=== PATIENT | female | born 1975 ===

== ENCOUNTER 2016-11-01 15:25 | Emergency (ER) | payer MEDICAID, OTHER ==
[2016-11-01 15:25] VITALS: BMI 27.4
[2016-11-01] MEDS ORDERED: Alum-Mag Hydrox-Simethicone Susp (30 mL) PO STA (16:28)
[2016-11-01] MEDS ORDERED: Alum-Mag Hydrox-Simethicone Susp (30 mL) ONE (16:31)
--- NOTE | 2016-11-01 19:51 | ED PDOC ---
HPI: Psych/Substance Abuse Time Seen by Provider: 11/01/16 16:30 Chief Complaint (Nursing): Psychiatric Evaluation Chief Complaint (Provider): itnoxication ED Caveat: Intoxicated Additional Complaint(s): 41yo F in bought to ED by EMS for intoxication-admitted to EMS she is SI no mention of plan. Pt admits to heavy drinking admits to nausea. Past Medical History Reviewed: Historical Data, Nursing Documentation, Vital Signs Vital Signs: Last Vital Signs Temp 98.0 F 11/01/16 15:27 Pulse 106 H 11/01/16 15:27 Resp 26 H 11/01/16 15:27 BP 160/105 H 11/01/16 15:27 Pulse Ox 98 11/01/16 15:27 - Medical History PMH: Anxiety, Arthritis, Depression, Gall Bladder Disease Denies: Chronic Kidney Disease - Surgical History Surgical History: Cholecystectomy (11/2014) - Family History Family History: States: Unknown Family Hx - Immunization History Hx Tetanus Toxoid Vaccination: No (unknown) Hx Influenza Vaccination: No (unknown) Hx Pneumococcal Vaccination: No (unknown) - Home Medications Home Medications: Ambulatory Orders Medication Instructions Recorded Methylprednisolone [Medrol Dose 4 mg PO DAILY #21 mg 06/11/15 Pack (21 tabs)] - Allergies Allergies/Adverse Reactions: Allergies Allergy/AdvReac Type Severity Reaction Status Date / Time No Known Allergies Allergy Verified 06/10/15 18:30 Review of Systems ROS Statement: Except As Marked, All Systems Reviewed And Found Negative Gastrointestinal: Positive for: Nausea Psych: Positive for: Depression Physical Exam - Reviewed Nursing Documentation Reviewed: Yes Vital Signs Reviewed: Yes - Physical Exam Appears: Positive for: Non-toxic (intoxicated, alcohol noted on breath), No Acute Distress. Negative for: Well Head Exam: Positive for: ATRAUMATIC, NORMAL INSPECTION, NORMOCEPHALIC Skin: Positive for: Normal Color, Warm, DRY Eye Exam: Positive for: EOMI, Normal appearance, PERRL Cardiovascular/Chest: Positive for: Regular Rate, Rhythm Respiratory: Positive for: CNT, Normal Breath Sounds Neurologic/Psych: Positive for: Alert, Oriented - ECG O2 Sat by Pulse Oximetry: 98 - Progress ED Course And Treament: pt alcohol level elevated. once alcohol level dec. will have crisis evaluation. family-came to ED to see pt- and child. pt given zofran and maalox for abd discomfort. ED OBSERVATION Date of observation admission: 11/01/16 Time of observation admission: 19:51 - Observation admission statement Patient is being placed in observation because:: intoxication/depression - Goals of Observation Goals of observation are:: crisis eval Disposition - Clinical Impression Clinical Impression: Alcohol intoxication - Patient ED Disposition Is Patient to be Admitted: Transfer of Care - Disposition Disposition Time: 19:51 Condition: STABLE Patient Signed Over To: Kaylin Ward Handoff Comments: crisis eval
[2016-11-02 04:22] VITALS: BP 135/80; PULSE 75; RESP 16; TEMP 97.9; O2SAT 100
--- NOTE | 2016-11-02 04:25 | ED PDOC ---
- ECG O2 Sat by Pulse Oximetry: 100 - Progress ED Course And Treament: Case endorsed to va underwriter from Delia IYER pending clinical sobriety, crisis eval Patient evaluated by fast foods worker; does not meet criteria for admission as per Dr. Romero. 4:25 Patient awake, alert, oriented x 3. Ambulating steady gait. Stable for discharge. Disposition - Clinical Impression Clinical Impression: Alcohol use disorder - POA Present On Arrival: None - Disposition Disposition: Routine/Home Disposition Time: 04:24 Condition: STABLE Instructions: Alcohol Intoxication (ED) Forms: [facility] ED School/Work Excuse
== END 2016-11-02 04:55 | disposition home or self-care (01) ==
LOC: H.ER 15:25
DX: F10.129 Alcohol abuse with intoxication, unspecified (principal)

== ENCOUNTER 2017-01-03 22:10 | Inpatient (IN) | payer MEDICAID ==
[2017-01-03 22:11] VITALS: BMI 27.4
--- NOTE | 2017-01-03 22:40 | ED PDOC ---
HPI: Psych/Substance Abuse Time Seen by Provider: 01/03/17 22:19 Chief Complaint (Nursing): Psychiatric Evaluation Chief Complaint (Provider): crisis History Per: EMS Additional History Per: EMS Additional Complaint(s): 41 y/o female brought in by EMS for crisis eval. As per EMS, patient's daughter called for bizarre behavior. Patient awake upon arrival to ED; +AOB. HPI limited at this time due to current state. No obvious signs of trauma Past Medical History Reviewed: Historical Data, Nursing Documentation, Vital Signs Vital Signs: Last Vital Signs Temp 98.2 F 01/03/17 22:12 Pulse 96 H 01/03/17 22:12 Resp 17 01/03/17 22:12 BP 153/96 H 01/03/17 22:12 Pulse Ox 98 01/03/17 22:12 - Medical History PMH: Anxiety, Arthritis, Depression, Gall Bladder Disease Denies: Diabetes, Hepatitis, HIV, HTN, Chronic Kidney Disease, Seizures, Sexually Transmitted Disease - Surgical History Surgical History: Cholecystectomy (11/2014) - Family History Family History: States: Unknown Family Hx - Immunization History Hx Tetanus Toxoid Vaccination: No (unknown) Hx Influenza Vaccination: No (unknown) Hx Pneumococcal Vaccination: No (unknown) - Home Medications Home Medications: Ambulatory Orders Medication Instructions Recorded Budesonide [Entocort EC] 3 mg PO TID 01/04/17 Multivitamin [Multi-Vitamin Daily] 1 tab PO DAILY 01/04/17 - Allergies Allergies/Adverse Reactions: Allergies Allergy/AdvReac Type Severity Reaction Status Date / Time No Known Allergies Allergy Verified 06/10/15 18:30 Review of Systems ROS Statement: Except As Marked, All Systems Reviewed And Found Negative Physical Exam - Reviewed Nursing Documentation Reviewed: Yes Vital Signs Reviewed: Yes - Physical Exam Appears: Positive for: Well, Non-toxic, No Acute Distress Head Exam: Positive for: ATRAUMATIC, NORMAL INSPECTION, NORMOCEPHALIC Skin: Positive for: Normal Color Eye Exam: Positive for: Normal appearance, EOMI, PERRL Cardiovascular/Chest: Positive for: Regular Rate, Rhythm Respiratory: Positive for: Normal Breath Sounds Gastrointestinal/Abdominal: Positive for: Normal Exam Back: Positive for: Normal Inspection Extremity: Positive for: Normal ROM Neurologic/Psych: Positive for: Alert - Laboratory Results Result Diagrams: 01/04/17 16:45 01/04/17 16:45 - ECG O2 Sat by Pulse Oximetry: 98 - Progress ED Course And Treament: labs, urine ED OBSERVATION Date of observation admission: 01/04/17 Time of observation admission: 00:14 - Observation admission statement Patient is being placed in observation because:: alcohol intoxication - Goals of Observation Goals of observation are:: observe for clinical sobriety - Progress Note Progress Note: 01/04/17 00:14 Patient sleeping; arousable to verbal stimuli 01/04/17 01:24 Patient awake. Patient evaluated by Dr. Camacho, who is now exhibiting auditory hallucinations and responding to internal stimuli. Crisis eval ordered 3:15 Patient evaluated by demolition worker, possible [facility] screening. Patient still unable to provide name. CT head and ammonia level ordered 01/04/17 3:30 whiting can worker contacted patient's , who states patient with extensive history of alcohol abuse and is currently on "liver medications". noted that patient hallucinates when she drinks and has problems remembering which always resolves after sobering up. Patient's states he will be come to ED at 6:30 after he gets off of work. IV banana bag ordered 01/04/17 03:45 EXAM: CT Head Without Intravenous Contrast CLINICAL HISTORY: 41 years old, female; Signs and symptoms; Altered mental status/memory loss; Additional info: AMS TECHNIQUE: Axial computed tomography images of the head/brain without intravenous contrast. This CT exam was performed using one or more of the following dose reduction techniques: automated exposure control, adjustment of the mA and/or kV according to patient size, and/or use of iterative reconstruction technique. Coronal and sagittal reformatted images were created and reviewed. COMPARISON: No relevant prior studies available. FINDINGS: Brain: No intracranial hemorrhage. No mass. No definite edema. Ventricles: No hydrocephalus. Bones/joints: No acute fracture. Soft tissues: Unremarkable. Sinuses: No acute sinusitis. Mastoid air cells: No mastoid effusion. Orbits: Unremarkable as visualized. IMPRESSION: 1. No acute intracranial abnormality. 2. Incidental/non-acute findings are described above. 01/04/17 21:31 01/04/17 21:33 Disposition - Clinical Impression Clinical Impression: Alcohol abuse with intoxication, Psychosis - Patient ED Disposition Is Patient to be Admitted: No - Disposition Disposition: Transfer of Care Disposition Time: 05:55 Condition: STABLE Patient Signed Over To: Karlos Camacho Handoff Comments: pending clinical sobriety
[2017-01-03 23:13] LABS: BASO % 0.9 % (0.0-2.0); EOS # 0.1 K/uL (0.0-0.7); EOS % 2.3 % (0.0-4.0); LYMPH # 1.5 K/uL (1.0-4.3); LYMPH % 36.5 % (20.0-40.0); MEAN CELL VOLUME 84.6 fl (81.0-99.0); MEAN CORPUSCULAR HEMOGLOBIN 28.1 pg (27.0-31.0); MEAN CORPUSCULAR HGB CONC 33.3 g/dL (33.0-37.0); MEAN PLATELET VOLUME 7.9 fl (7.2-11.7); MONO # 0.4 K/uL (0.0-0.8); MONO % 10.1 % (0.0-10.0); NEUT % 50.2 % (50.0-75.0); NRBC % 0.4 % (0.0-0.0); RED CELL DISTRIBUTION WIDTH 16.8 % (11.5-14.5)
[2017-01-03 23:25] LABS: ALB/GLOB RATIO 0.7 (1.0-2.1); ALCOHOL SERUM 252 mg/dl (0-10); ALKALINE PHOSPHATASE 346 U/L (38-126); ALT/SGPT 314 U/L (9-52); BILIRUBIN,TOTAL 0.8 mg/dl (0.2-1.3); BLOOD UREA NITROGEN 8 mg/dl (7-17); CALCIUM 8.3 mg/dL (8.4-10.2); CARBON DIOXIDE 25 mmol/L (22-30); CHLORIDE 105 mmol/L (98-107); GFR AFRICAN-AMERICAN > 60; GLUCOSE,RANDOM 107 mg/dL (65-105); POTASSIUM 3.9 MMOL/L (3.6-5.0); SODIUM 142 mmol/l (132-148); TOTAL PROTEIN 9.6 G/DL (6.3-8.2)
[2017-01-04 00:04] LABS: AST/SGOT 877 U/L (14-36)
[2017-01-04] MEDS ORDERED: Multivitamin (MVI) 10 ML, Folic Acid 1 MG, Thiamine 100 MG in Dextrose 5%/0.45% NS 1,00... IV ONE (03:36)
--- NOTE | 2017-01-04 03:44 | CT ---
EXAM: CT Head Without Intravenous Contrast CLINICAL HISTORY: 41 years old, female; Signs and symptoms; Altered mental status/memory loss; Additional info: AMS TECHNIQUE: Axial computed tomography images of the head/brain without intravenous contrast. This CT exam was performed using one or more of the following dose reduction techniques: automated exposure control, adjustment of the mA and/or kV according to patient size, and/or use of iterative reconstruction technique. Coronal and sagittal reformatted images were created and reviewed. COMPARISON: No relevant prior studies available. FINDINGS: Brain: No intracranial hemorrhage. No mass. No definite edema. Ventricles: No hydrocephalus. Bones/joints: No acute fracture. Soft tissues: Unremarkable. Sinuses: No acute sinusitis. Mastoid air cells: No mastoid effusion. Orbits: Unremarkable as visualized. IMPRESSION: 1. No acute intracranial abnormality. 2. Incidental/non-acute findings are described above.
--- NOTE | 2017-01-04 06:28 | ED PDOC ---
- Laboratory Results Result Diagrams: 01/04/17 16:45 01/04/17 16:45 - ECG O2 Sat by Pulse Oximetry: 98 (RA) Pulse Ox Interpretation: Normal Medical Decision Making Medical Decision Making: Patient was signed out to provider from Kaylin Ward PA-C at 0600. Time:0655 Patient evaluated by crisis after arrived. As per , patient is refusing to recognize him and has persistently stated she was suicidal. Patient also observed to be responding to internal stimuli and admits to auditory hallucinations. Crisis is referring patient [place] [facility] at this time Time: 0700 Patient signed out to Dr. Bettencourt pending [facility] [place] Scribe Attestation Documented by Lalita Sam acting as a scribe for Karlos Camacho MD. Provider Attestation: All medical record entries made by the Scribe were at my direction and personally dictated by me. I have reviewed the chart and agree that the record accurately reflects my personal performance of the history, physical exam, medical decision making, and the department course for this patient. I have also personally directed, reviewed, and agree with the discharge instructions and disposition. Disposition Counseled Patient/Family Regarding: Studies Performed, Diagnosis - Clinical Impression Clinical Impression: Alcohol abuse with intoxication, Psychosis - POA Present On Arrival: None - Disposition Disposition: Routine/Home Disposition Time: 06:20 Condition: STABLE Patient Signed Over To: Jenny Bettencourt
--- NOTE | 2017-01-04 07:21 | ED PDOC ---
- Laboratory Results Result Diagrams: 01/03/17 22:40 01/03/17 22:40 - ECG ECG: Positive for: Interpreted By Me ECG Rhythm: Positive for: Normal QRS, Sinus Rhythm. Negative for: ST/T Changes Rate: 82 O2 Sat by Pulse Oximetry: 99 (RA) Pulse Ox Interpretation: Normal Medical Decision Making Medical Decision Making: Time: 0700 Patient signed out by Dr. Camacho pending [facility] screening Time: 1023 Crisis requesting alcohol level and CXR at this time Time: 1235 Alcohol level is zero CXR: HISTORY:psych COMPARISON: Comparison made with chest radiograph dated 01/29/2014. . FINDINGS: LUNGS: No active pulmonary disease. PLEURA: No significant pleural effusion identified, no pneumothorax apparent. CARDIOVASCULAR: Heart size is upper limits of normal OSSEOUS STRUCTURES: No significant abnormalities. VISUALIZED UPPER ABDOMEN: Normal. OTHER FINDINGS: None. IMPRESSION: No active disease. Urine: Negative for infection Patient is medically cleared for evaluation Time: 1340 Dr. Almonte, discussed that patient remains altered but with normal ammonia levels. Patient is noted to have elevated LFT, elevated from 300 AST to 800. GI and Neuro work up admission at this time Dr Brewster neurology aware Dr Jillian ELENA called but no call back Scribe Attestation: Documented by Eliz Richey acting as a scribe for Jenny Bettencourt MD MD Scribe Attestation: All medical record entries made by the Scribe were at my direction and personally dictated by me. I have reviewed the chart and agree that the record accurately reflects my personal performance of the history, physical exam, medical decision making, and the department course for this patient. I have also personally directed, reviewed, and agree with the discharge instructions and disposition. Time: 14:18 --Dr. Abdalla is aware and agrees with patient being admitted. --Neurologist is risk control analyst: Dr. Brewster who is aware and will see patient. Scribe Attestation: Documented by Nydia Armstrong, acting as a scribe for Jenny Bettencourt MD. Provider Scribe Attestation: All medical record entries made by the Scribe were at my direction and personally dictated by me. I have reviewed the chart and agree that the record accurately reflects my personal performance of the history, physical exam, medical decision making, and the department course for this patient. I have also personally directed, reviewed, and agree with the discharge instructions and disposition. Disposition Counseled Patient/Family Regarding: Studies Performed, Diagnosis - Clinical Impression Clinical Impression: Alcohol abuse with intoxication - POA Present On Arrival: None - Disposition Disposition: Admitted as In-Patient Disposition Time: 14:00 Condition: STABLE
[2017-01-04 12:18] LABS: RBC URINE 31 /hpf (0-3); URINE BACTERIA RARE (<OCC); URINE BILIRUBIN NEGATIVE (NEGATIVE); URINE BLOOD MODERATE (NEGATIVE); URINE COLOR AMBER (YELLOW); URINE GLUCOSE (UA) NEG (Normal); URINE KETONE TRACE mg/dL (NEGATIVE); URINE LEUKOCYTE ESTERASE NEG Leu/uL (Negative); URINE PROTEIN 100 mg/dL (NEGATIVE); WBC URINE 3 /hpf (0-5)
--- NOTE | 2017-01-04 12:38 | RAD ---
HISTORY: psych COMPARISON: Comparison made with chest radiograph dated 01/29/2014. . FINDINGS: LUNGS: No active pulmonary disease. PLEURA: No significant pleural effusion identified, no pneumothorax apparent. CARDIOVASCULAR: Heart size is upper limits of normal OSSEOUS STRUCTURES: No significant abnormalities. VISUALIZED UPPER ABDOMEN: Normal. OTHER FINDINGS: None. IMPRESSION: No active disease.
--- NOTE | 2017-01-04 13:30 | CP.PCM.CON ---
History of Present Illness - History of Present Illness History of Present Illness: Psychiatry consult Patient is poor historian due to altered mental status, she stares blankly at fiction and nonfiction writer prose and only answers some questions. She is not oriented to location, date, or situation. She is actively hallucinating, seeing colors and ants and having auditory hallucinations of "noises". As per records she is a chronic alcohol abuser. Additional information from the chart: 41 y/o female who was brought into ED by EMS secondary to daughter calling 911 after pt was acting paranoid. Pt stated she does not know why she is in this ED. Pt stated all she can remember was seeing the ambulance come to her home and pt stated she felt anxious. Pt stated she did not know where she lives and stated she did not know who she lived with. Pt denied having a psych hx and denied being on meds. Pt stated she has never been admitted to the psychiatric unit. Pt stated she drank alcohol yesterday and stated she drinks 1x a week. Pt stated she is feeling depressed. Pt stated she is feeling suicidal with a plan to choke herself. Pt denied HI. Pt stated she heard voices before but does not remember what they told her or what they sounded like. Pt stated she wanted to be admitted to the psych unit. Pt was guarded and still was answering questions with, I dont remember. Pts tone was low and slow. Pt is not oriented to time, year, month, or place, but only knows her first name. Pts of 14 years, Flaco GrantAczdl-[phone], who stated pt has a drinking problem and that pt is always drinking. He stated pt does not have psych issues but could be depressed due to having to watch their 5 kids and they drive her crazy. He stated pt is only on a medication for her liver. He stated pt is in a program for drinking but does not remember the name. He stated pt is not a danger to herself or others but thinks she needs to stay until the morning when he comes and he will help her get stabilized. He stated pt forgets everything when she drinks and stated pt hallucinates when drinking. He stated pt lost her job recently and her boss called her a thief last week. He stated since then, pt has been drinking hard. He stated pt has never stated she wanted to hurt herself but only would tell him she hears things and see things. He stated he was with pt all morning and afternoon and pt was fine. He asked if pt could be observed until 6:30am and stated she needs to be more sober due to her drinking for 3 days straight. He stated he will be here at 6:30am and stated he feels pt will remember him and will be able to answer more questions. He stated pt is not nuts and does need admission to psych unit. He stated he wants to help pt get into a program for her drinking. MSE: A + O x 1, staring at the fiction and nonfiction writer prose, poverty of thought/speech, +AH/VH, NO SI/ HI. Insight/judgment currently impaired. Impression: 41 yo female w/ h/o chronic alcohol abuse, no significant psychiatric history of treatment or medications, currently with elevated LFTs, came in to the hospital acutely intoxicated, now sober, but with altered mental status, actively hallucinating. At this time, patient's acute presentation seems more likely due to a primary medical condition, but patient may have a psychotic disorder. Recommendations: -Continued medical evaluation to r/o medical cause of change in mental status -Can give Zyprexa 5 mg PO once for acute psychosis -Would start Ativan or Librium for alcohol withdrawal Past Patient History - Infectious Disease Hx of Infectious Diseases: None - Tetanus Immunizations Tetanus Immunization: Unknown - Past Medical History & Family History Past Medical History?: Yes - Past Social History Smoking Status: Unknown If Ever Smoked - CARDIAC Hx Cardiac Disorders: No Hx Hypertension: No - PULMONARY Hx Tuberculosis: No - NEUROLOGICAL HX Cerebrovascular Accident: No Hx Seizures: No - HEENT Hx HEENT Problems: No - RENAL Hx Chronic Kidney Disease: No - ENDOCRINE/METABOLIC Hx Endocrine Disorders: No - HEMATOLOGICAL/ONCOLOGICAL Hx Cancer: No Hx Human Immunodeficiency Virus (HIV): No - INTEGUMENTARY Hx Dermatological Problems: No - MUSCULOSKELETAL/RHEUMATOLOGICAL Hx Arthritis: Yes - GASTROINTESTINAL Hx Gall Bladder Disease: Yes - GENITOURINARY/GYNECOLOGICAL Hx Sexually Transmitted Disorders: No - PSYCHIATRIC Hx Anxiety: Yes Hx Depression: Yes - SURGICAL HISTORY Hx Cholecystectomy: Yes (11/2014) - ANESTHESIA Hx Anesthesia: Yes Hx Anesthesia Reactions: No Hx Malignant Hyperthermia: No Meds Allergies/Adverse Reactions: Allergies Allergy/AdvReac Type Severity Reaction Status Date / Time No Known Allergies Allergy Verified 06/10/15 18:30 Results - Vital Signs Recent Vital Signs: Last Vital Signs Temp 98.6 F 01/04/17 11:41 Pulse 90 01/04/17 11:41 Resp 20 01/04/17 11:41 BP 150/94 H 01/04/17 11:41 Pulse Ox 99 01/04/17 12:54 - Labs Result Diagrams: 01/03/17 22:40 01/03/17 22:40 Labs: Laboratory Results - last 24 hr 01/04/17 01/04/17 01/04/17 03:31 10:45 11:56 Ammonia 21 Urine Color Aria Urine Clarity Slighty-cloudy Urine pH 6.0 Ur Specific [place] 1.024 Urine Protein 100 Urine Glucose (UA) Neg Urine Ketones Trace Urine Blood Moderate Urine Nitrate Negative Urine Bilirubin Negative Urine Urobilinogen 2.0 H Ur Leukocyte Esterase Neg Urine RBC (Auto) 31 H Urine Microscopic WBC 3 Ur Squamous Epith Cells 10 H Urine Bacteria Rare Hyaline Casts 0-2 Alcohol, Quantitative < 10
[2017-01-04] MEDS ORDERED: Thiamine 100 mg/ml Inj IV ONE (16:34)
[2017-01-04] MEDS ORDERED: Sucralfate 1 gm/10 ml Oral Susp UD PO ONE (16:38)
[2017-01-04] MEDS: Sodium Chloride 0.9% 1,000 ML IV SCH (17:00)
--- NOTE | 2017-01-04 17:03 | PCM.RRTMUL ---
<Opal Espana - Last Filed: 01/04/17 17:01> UTILITY REPAIRER Nurse Assessment - Situation UTILITY REPAIRER Responder Arrival Time:: 16:30 UTILITY REPAIRER Called By: RN - Vital Signs Blood Pressure:: 156/91 Pulse Rate:: 75 Respiratory Rate:: 18 Temperature:: 98.3 F I.Reason for UTILITY REPAIRER - A) Acute Change in Patient: Subjective: 41 yo female w/ h/o chronic alcohol abuse, came in to the hospital acutely intoxicated, and with altered mental status, actively hallucinating admitted for Psychiatric evaluation, now presenting with middle chest-epigastric pain. UTILITY REPAIRER was called by nurse because patient was complaining of middle-epigastric chest pain, no radiating, and no associated with nausea, vomiting, SOB, lightheadedness, or other complains. - Constitutional Appears: Non-toxic, No Acute Distress - Respiratory Exam Respiratory Exam: Clear to Ausculation Bilateral, NORMAL BREATHING PATTERN - Cardiovascular Exam Cardiovascular Exam: REGULAR RHYTHM, +S1, +S2 - GI/Abdominal Exam GI & Abdominal Exam: Soft, Normal Bowel Sounds. absent: Guarding, Rigid, Tenderness, Rebound - Neurological Exam Neurological Exam: Alert, Awake, Oriented x3 - Extremities Exam Extremities Exam: Normal Inspection. absent: Calf Tenderness, Pedal Edema Plan - A. End of UTILITY REPAIRER Vital Signs: Blood Pressure: 150/90 Pulse Rate: 75 Respiratory Rate: 14 O2 Sat by Pulse Oximetry: 100 - B. Assessment of Findings&Treatment Plan VS: BP: 150/90, HR: 75/min, RR: 14/min, O2 Sat 100 % in NC A: 41 yo female w/ h/o chronic alcohol abuse, presenting with chest-epigastric pain , etiology most likely secondary to alcohol consumption history, but we can not r/o ACS. Plan:EKG: showed NSR, but peaked T waves compared with previous EKG CBC, CMP, Troponin I once, Magnesium, Phosphorus, Type & Screen IV hydration with NS 100 ml/hr Thiamine 100 mg IV once. Then Thiamine 100 mg PO daily start tomorrow. Pantoprazole 40 mg IV once. Then Pantoprazole 40 mg PO daily tomorrow. Folic acid 1 mg PO daily Ativan 1 mg IVP once. Then Ativan 1 mg PRN Q4h Sucralfate 1 gm PO once F/U lab results At the end of UTILITY REPAIRER patient was alert, awake, and oriented. Chest-epigastric pain still present but improved. <DongNikki - Last Filed: 01/04/17 17:39> Attending/Attestation - Attestation I have personally seen and examined this patient.: Yes I have fully participated in the care of the patient.: Yes I have reviewed all pertinent clinical information, including history, physical exam and plan: Yes Notes (Text): 01/04/17 17:33 UTILITY REPAIRER called bec of epigastric pain and withdrawal sxs. Pt is a 41 y lady, known hx of Alcohol abuse. RN noted that pt was jittery and anxious, complained of epigastric pain Pt admits to daily ETOH intake , Alcohol level 250 on admission today less than 10 Epigastric Pain Alcohol Withdrawal Syndrome - EKG : no change from previosu - Ativan stat IV given then prn - start Thiamine, FA - Stat Protonix IV and Carafate PO - IVF hydration - rpt labs - CBC, CMP, Trop Dr Abdalla - pt's PMD notified of event , case discussed
[2017-01-04 17:07] LABS: HEMATOCRIT 30.6 % (34.0-47.0); MEAN CELL VOLUME 85.4 fl (81.0-99.0); MEAN CORPUSCULAR HEMOGLOBIN 27.9 pg (27.0-31.0); MEAN CORPUSCULAR HGB CONC 32.6 g/dL (33.0-37.0); RED CELL DISTRIBUTION WIDTH 16.7 % (11.5-14.5); WHITE BLOOD COUNT 3.9 K/uL (4.8-10.8)
[2017-01-04 17:11] LABS: PARTIAL THROMBOPLASTIN TIME 25.6 SECONDS (23.3-32.5)
[2017-01-04 17:22] LABS: ALB/GLOB RATIO 0.7 (1.0-2.1); ALKALINE PHOSPHATASE 382 U/L (38-126); ALT/SGPT 319 U/L (9-52); BILIRUBIN,TOTAL 1.9 mg/dl (0.2-1.3); BLOOD UREA NITROGEN 9 mg/dl (7-17); CARBON DIOXIDE 26 mmol/L (22-30); CHLORIDE 99 mmol/L (98-107); GFR AFRICAN-AMERICAN > 60; GLUCOSE,RANDOM 92 mg/dL (65-105); MAGNESIUM 1.3 MG/DL (1.6-2.3); PHOSPHOROUS 4.4 mg/dl (2.5-4.5); POTASSIUM 3.9 MMOL/L (3.6-5.0); SODIUM 135 mmol/l (132-148); TOTAL PROTEIN 10.3 G/DL (6.3-8.2)
[2017-01-04 17:36] LABS: AST/SGOT 800 U/L (14-36)
--- NOTE | 2017-01-04 18:23 | CP.PCM.CON ---
History of Present Illness - History of Present Illness History of Present Illness: Mrs. Piper is a 41-year-old woman with a past medical history of liver cirrhosis and alcoholism who presented to the ED after she was found in a confused state and claiming to have auditory and visual hallucinations. Currently, the patient is sober, but when she initially presented, she was intoxicated and still encephalopathic. The patient admits to having visual hallucinations when she drinks excessively and also states that she starts to hear noises. The noises are described as a "humming" sound that sometimes gets louder with position. Currently, she does not have any hallucinations and states that she is feeling much better. She responded normally to all questions and followed all commands. Review of Systems - Review of Systems All systems: reviewed and no additional remarkable complaints except Past Patient History - Infectious Disease Hx of Infectious Diseases: None - Tetanus Immunizations Tetanus Immunization: Unknown - Past Medical History & Family History Past Medical History?: Yes - Past Social History Smoking Status: Unknown If Ever Smoked - CARDIAC Hx Cardiac Disorders: No - PULMONARY Hx Tuberculosis: No - NEUROLOGICAL HX Cerebrovascular Accident: No Hx Seizures: No - HEENT Hx HEENT Problems: No - RENAL Hx Chronic Kidney Disease: No - ENDOCRINE/METABOLIC Hx Endocrine Disorders: No - HEMATOLOGICAL/ONCOLOGICAL Hx Cancer: No Hx Human Immunodeficiency Virus (HIV): No - INTEGUMENTARY Hx Dermatological Problems: No - MUSCULOSKELETAL/RHEUMATOLOGICAL Hx Arthritis: Yes - GASTROINTESTINAL Hx Gall Bladder Disease: Yes - GENITOURINARY/GYNECOLOGICAL Hx Sexually Transmitted Disorders: No - PSYCHIATRIC Hx Anxiety: Yes Hx Depression: Yes - SURGICAL HISTORY Hx Cholecystectomy: Yes (11/2014) - ANESTHESIA Hx Anesthesia: Yes Hx Anesthesia Reactions: No Hx Malignant Hyperthermia: No Meds Allergies/Adverse Reactions: Allergies Allergy/AdvReac Type Severity Reaction Status Date / Time No Known Allergies Allergy Verified 06/10/15 18:30 - Medications Medications: Current Medications Enoxaparin Sodium (Lovenox) 40 mg SC DAILY RIRI PRN Reason: Protocol Folic Acid (Folic Acid) 1 mg PO DAILY [facility] Home Med (Budesonide [Entocort Ec]) 3 mg PO TID RIRI Sodium Chloride (Sodium Chloride 0.9%) 1,000 mls @ 100 mls/hr IV .Q10H RIRI Stop: 01/05/17 16:45 Last Admin: 01/04/17 17:00 Dose: 100 mls/hr Lorazepam (Ativan) 1 mg IVP Q4 PRN PRN Reason: Symptoms of alcohol withdrawl Multivitamins/Minerals (Therapeutic-M Tab) 1 tab PO DAILY RIRI Pantoprazole Sodium (Protonix Ec Tab) 40 mg PO DAILY RIRI Thiamine HCl (Vitamin B1 Tab) 100 mg PO DAILY RIRI Physical Exam - Constitutional Appears: Well - Head Exam Head Exam: ATRAUMATIC, NORMAL INSPECTION, NORMOCEPHALIC - Eye Exam Eye Exam: EOMI, Normal appearance, PERRL - ENT Exam ENT Exam: Mucous Membranes Moist, Normal Exam - Respiratory Exam Respiratory Exam: Clear to Auscultation Bilateral, NORMAL BREATHING PATTERN - Cardiovascular Exam Cardiovascular Exam: REGULAR RHYTHM, +S1, +S2 - GI/Abdominal Exam GI & Abdominal Exam: Normal Bowel Sounds, Soft. absent: Tenderness - Rectal Exam Rectal Exam: Deferred - Neurological Exam Neurological exam: Alert, CN II-XII Intact, Normal Gait, Reflexes Normal Additional comments: Oriented to person and place, but not date. She knew the month and the year. She was bradyphrenic and still slightly confused, but was able to do a subtraction task and could recall 2/3 objects. - Expanded Neurological Exam Expanded Patient oriented to: person, place Cranial nerves: EOM's Intact: Normal, Gag Reflex: Normal Cerebellar Function: Finger to Nose: Normal Upper motor neuron: Babinski Sign: Normal Sensory exam: Lower Extremity 2 Point Discrimination: Normal, Lower Extremity Light Touch: Normal, Lower Extremity Pin Prick: Normal, Lower Extremity Temperature: Normal, Upper Extremity 2 Point Discrimination: Normal, Upper Extremity Light Touch: Normal, Upper Extremity Pin Prick: Normal, Upper Extremity Temperature: Normal Neuro motor strength exam: Left Upper Extremity: 5, Right Upper Extremity: 5, Left Lower Extremity: 5, Right Lower Extremity: 5 DTR: Achilles Tendon Left: 2+, Achilles Tendon Right: 2+, Bicep Left: 2+, Bicep Right: 2+, Brachioradialis Left: 2+, Brachioradialis Right: 2+, Patellar Left: 2 +, Patellar Right: 2+, Tricep Left: 2+, Tricep Right: 2+ - Psychiatric Exam Psychiatric exam: Normal Affect, Normal Mood - Skin Skin Exam: Dry, Intact, Normal Color, Warm Results - Vital Signs Recent Vital Signs: Last Vital Signs Temp 98.3 F 01/04/17 17:29 Pulse 75 01/04/17 17:29 Resp 14 01/04/17 17:29 BP 150/90 01/04/17 17:29 Pulse Ox 100 01/04/17 16:40 - Labs Result Diagrams: 01/04/17 16:45 01/04/17 16:45 Labs: Laboratory Results - last 24 hr 01/04/17 01/04/17 01/04/17 15:30 16:45 16:45 WBC 3.9 L RBC 3.58 L Hgb 10.0 L Hct 30.6 L MCV 85.4 MCH 27.9 MCHC 32.6 L RDW 16.7 H Plt Count 98 L PT 11.9 H INR 1.14 H APTT 25.6 Sodium 135 Potassium 3.9 Chloride 99 Carbon Dioxide 26 Anion Gap 15 BUN 9 Creatinine 0.4 L Est GFR ( Amer) > 60 Est GFR (Non-Af Amer) > 60 Random Glucose 92 Calcium 9.0 Phosphorus 4.4 Magnesium 1.3 L Total Bilirubin 1.9 H AST 800 H ALT 319 H Alkaline Phosphatase 382 H Troponin I < 0.0120 Total Protein 10.3 H Albumin 4.3 Globulin 6.1 H Albumin/Globulin Ratio 0.7 L BBK History Checked 01/04/17 16:45 WBC RBC Hgb Hct MCV MCH MCHC RDW Plt Count PT INR APTT Sodium Potassium Chloride Carbon Dioxide Anion Gap BUN Creatinine Est GFR ( Amer) Est GFR (Non-Af Amer) Random Glucose Calcium Phosphorus Magnesium Total Bilirubin AST ALT Alkaline Phosphatase Troponin I Total Protein Albumin Globulin Albumin/Globulin Ratio BBK History Checked No verified bt - Imaging and Cardiology CT scan - head Status: Image reviewed by me, Report reviewed by me (NO acute findings.) Assessment & Plan (1) Alcoholic psychosis with hallucinosis Assessment and Plan: Currently, she is relatively back to normal. However, the "humming" sound in her ears is concerning since this could represent a vascular lesion. I recommend obtaining an MRI with and without contrast for further evaluation. Furthermore, the memory deficits are concerning for temporal lobe injury. Continue current recommendations from psychiatry and will follow-up on imaging. Thank you very much for this consultation. Status: Acute Priority: Medium
[2017-01-05] MEDS: Sodium Chloride 0.9% 1,000 ML IV SCH ×2 (03:11→12:40)
[2017-01-05] MEDS ORDERED: Thiamine 100 mg/ml Inj IM SCH (09:00)
[2017-01-05] MEDS: Multivitamin With Minerals Tab PO SCH (09:10)
[2017-01-05] MEDS: Enoxaparin 40 mg Syringe SC SCH (09:10)
[2017-01-05] MEDS: Pantoprazole 40 mg EC Tab PO SCH (09:10)
[2017-01-05 09:12] LABS: HEMATOCRIT 28.4 % (34.0-47.0); MEAN CELL VOLUME 84.6 fl (81.0-99.0); MEAN CORPUSCULAR HEMOGLOBIN 28.5 pg (27.0-31.0); MEAN CORPUSCULAR HGB CONC 33.6 g/dL (33.0-37.0); WHITE BLOOD COUNT 6.6 K/uL (4.8-10.8)
[2017-01-05 09:22] LABS: ALB/GLOB RATIO 0.7 (1.0-2.1); ALKALINE PHOSPHATASE 319 U/L (38-126); ALT/SGPT 253 U/L (9-52); AST/SGOT 662 U/L (14-36); BILIRUBIN,TOTAL 2.2 mg/dl (0.2-1.3); BLOOD UREA NITROGEN 9 mg/dl (7-17); CALCIUM 8.7 mg/dL (8.4-10.2); CARBON DIOXIDE 23 mmol/L (22-30); CHLORIDE 102 mmol/L (98-107); GFR AFRICAN-AMERICAN > 60; GLUCOSE,RANDOM 107 mg/dL (65-105); POTASSIUM 3.8 MMOL/L (3.6-5.0); SODIUM 134 mmol/l (132-148); TOTAL PROTEIN 9.5 G/DL (6.3-8.2)
[2017-01-05] MEDS ORDERED: Gadodiamide 287 MG/ML VIAL (15ML) IV ONE (09:23)
--- NOTE | 2017-01-05 10:58 | US ---
HISTORY: elevated lft, abd pain COMPARISON: None. TECHNIQUE: Sonographic evaluation of the abdomen. FINDINGS: LIVER: Measures 15.0 cm. Hepatopedal blood flow. Fatty infiltration manifest ultrasonographically as increased echogenicity of the liver parenchyma. No mass. No intrahepatic bile duct dilatation. GALLBLADDER: Status post cholecystectomy. No abnormality is seen in the gallbladder fossa. COMMON BILE DUCT: Measures 6.5 mm. No stones. No dilatation. PANCREAS: Unremarkable as visualized. No mass. No ductal dilatation. RIGHT KIDNEY: Measures 5.9 x 11.9cm. Normal echogenicity. No calculus, mass, or hydronephrosis. LEFT KIDNEY: Measures 5.5 x 10.7cm. Normal echogenicity. No calculus, mass, or hydronephrosis. SPLEEN: Normal in size and contour. No mass. AORTA: No aneurysmal dilatation. IVC: Unremarkable. OTHER FINDINGS: None. IMPRESSION: Hepatic steatosis. Otherwise unremarkable study status post cholecystectomy.
--- NOTE | 2017-01-05 12:42 | MRI ---
PROCEDURE: MRI brain 01/05/2017 HISTORY: encephalopathy COMPARISON: Comparison made with CT scan brain 01/04/2017 TECHNIQUE: Multiplanar, multisequence MR images of the brain were obtained with and without intravenous contrast enhancement. FINDINGS: HEMORRHAGE: No acute parenchymal, subarachnoid or extra-axial hemorrhage. No hemosiderin deposition identified on gradient echo weighted sequence DWI: No evidence of an acute or early subacute infarction. BRAIN PARENCHYMA: Minimal slightly confluent nonenhancing prolonged T2 signal changes seen in the periventricular white matter most pronounced in the perifrontal horn (left greater than right) and perioccipital horn (right greater than left) regions. . . In addition, there is a punctate focus of increased T2 signal seen in the posterior aspect left basal ganglia/ coronal radiata junction ; a 2nd similar focus in the contralateral posterior aspect right basal ganglia/ coronal radiata junction may be present as well. These changes are nonspecific and of uncertain etiology however could represent chronic sequela of small vessel disease. Correlation recommended. There are no enhancing parenchymal nor extra-axial masses or collections. ENHANCEMENT: As above VENTRICLES: No evidence of obstructive hydrocephalus. CRANIUM: Unremarkable. ORBITS: Grossly unremarkable. PARANASAL SINUSES/MASTOIDS: Minimal mucosal thickening seen right maxillary antrum VASCULAR SYSTEM: The visualized major vascular flow voids at skull base are patent. OTHER FINDINGS: None . IMPRESSION: No evidence of acute hemorrhage or infarct. Minimal slightly confluent nonenhancing prolonged T2 signal changes seen in the periventricular white matter most pronounced in the perifrontal horn (left greater than right) and perioccipital horn (right greater than left) regions. . , there is punctate in addition, there is a punctate focus of increased T2 signal seen in the left posterior basal ganglia/ coronal radiata junction. These changes are nonspecific and of uncertain etiology however could represent chronic sequela of small vessel disease. Correlation recommended No enhancing parenchymal nor extra-axial masses or collections. No evidence of unusual meningeal enhancement.
--- NOTE | 2017-01-05 12:47 | CP.PCM.HP ---
<Bettye Copeland - Last Filed: 01/05/17 12:41> History of Present Illness - History of Present Illness History of Present Illness: 41yo F with PMHx cholelithisis, anxiety/depression, elevated LFTs, and EtOH abuse admitted for AMS and elevated LFTs. Pt does not recollect being sent to the hospital. c/o RUQ abd pain. Admits to recent EtOH intoxication, otherwise pt states EtOH socially. Last MRCP 06/08/15 with dilated CBD with no obstruction PMHx: as above SHx: vanna Allergies: NKDA Social hx: EtOH socially evaluated with attending Present on Admission - Present on Admission Any Indicators Present on Admission: No Review of Systems - Constitutional Constitutional: absent: Chills, Fever - Cardiovascular Cardiovascular: absent: Chest Pain - Respiratory Respiratory: absent: Dyspnea - Gastrointestinal Gastrointestinal: Abdominal Pain. absent: Diarrhea, Nausea, Vomiting - Genitourinary Genitourinary: absent: Dysuria, Hematuria - Musculoskeletal Musculoskeletal: absent: Back Pain - Neurological Neurological: Behavioral Changes Past Patient History - Infectious Disease Hx of Infectious Diseases: None - Tetanus Immunizations Tetanus Immunization: Unknown - Past Medical History & Family History Past Medical History?: Yes - Past Social History Smoking Status: Unknown If Ever Smoked - CARDIAC Hx Hypertension: No - PULMONARY Hx Tuberculosis: No - NEUROLOGICAL Hx Seizures: No - HEENT Hx HEENT Problems: No - RENAL Hx Chronic Kidney Disease: No - ENDOCRINE/METABOLIC Hx Endocrine Disorders: No - HEMATOLOGICAL/ONCOLOGICAL Hx Human Immunodeficiency Virus (HIV): No - INTEGUMENTARY Hx Dermatological Problems: No - MUSCULOSKELETAL/RHEUMATOLOGICAL Hx Arthritis: Yes - GASTROINTESTINAL Hx Gall Bladder Disease: Yes - GENITOURINARY/GYNECOLOGICAL Hx Sexually Transmitted Disorders: No - PSYCHIATRIC Hx Anxiety: Yes Hx Depression: Yes - SURGICAL HISTORY Hx Cholecystectomy: Yes (11/2014) - ANESTHESIA Hx Anesthesia: Yes Hx Anesthesia Reactions: No Hx Malignant Hyperthermia: No Meds Allergies/Adverse Reactions: Allergies Allergy/AdvReac Type Severity Reaction Status Date / Time No Known Allergies Allergy Verified 06/10/15 18:30 Physical Exam - Head Exam Head Exam: ATRAUMATIC, NORMAL INSPECTION - Eye Exam Eye Exam: Normal appearance - ENT Exam ENT Exam: Mucous Membranes Moist - Neck Exam Neck exam: Positive for: Normal Inspection - Respiratory Exam Respiratory Exam: Clear to Auscultation Bilateral - Cardiovascular Exam Cardiovascular Exam: REGULAR RHYTHM - GI/Abdominal Exam GI & Abdominal Exam: Soft, Tenderness. absent: Distended, Guarding, Rigid - Extremities Exam Extremities exam: Positive for: normal inspection - Back Exam Back exam: NORMAL INSPECTION - Neurological Exam Neurological exam: Alert, Oriented x3 Additional comments: motor/sensation grossly intact, no tremor - Skin Skin Exam: Dry, Warm Results - Vital Signs Recent Vital Signs: Last Vital Signs Temp 98.3 F 01/05/17 12:18 Pulse 95 H 01/05/17 12:18 Resp 18 01/05/17 12:18 BP 129/85 01/05/17 12:18 Pulse Ox 99 01/05/17 12:18 - Labs Result Diagrams: 01/05/17 08:50 01/05/17 08:50 Labs: Laboratory Results - last 24 hr 01/04/17 01/04/17 01/04/17 15:30 16:45 16:45 WBC 3.9 L RBC 3.58 L Hgb 10.0 L Hct 30.6 L MCV 85.4 MCH 27.9 MCHC 32.6 L RDW 16.7 H Plt Count 98 L PT 11.9 H INR 1.14 H APTT 25.6 Sodium 135 Potassium 3.9 Chloride 99 Carbon Dioxide 26 Anion Gap 15 BUN 9 Creatinine 0.4 L Est GFR ( Amer) > 60 Est GFR (Non-Af Amer) > 60 Random Glucose 92 Calcium 9.0 Phosphorus 4.4 Magnesium 1.3 L Total Bilirubin 1.9 H AST 800 H ALT 319 H Alkaline Phosphatase 382 H Troponin I < 0.0120 Total Protein 10.3 H Albumin 4.3 Globulin 6.1 H Albumin/Globulin Ratio 0.7 L Blood Type Blood Type Confirm Antibody Screen BBK History Checked 01/04/17 01/04/17 01/05/17 16:45 17:02 00:00 WBC RBC Hgb Hct MCV MCH MCHC RDW Plt Count PT INR APTT Sodium Potassium Chloride Carbon Dioxide Anion Gap BUN Creatinine Est GFR ( Amer) Est GFR (Non-Af Amer) Random Glucose Calcium Phosphorus Magnesium Total Bilirubin AST ALT Alkaline Phosphatase Troponin I < 0.0120 Total Protein Albumin Globulin Albumin/Globulin Ratio Blood Type O POSITIVE Blood Type Confirm O POSITIVE Antibody Screen Negative BBK History Checked No verified bt 01/05/17 01/05/17 01/05/17 08:50 08:50 08:50 WBC 6.6 D RBC 3.36 L Hgb 9.6 L Hct 28.4 L MCV 84.6 MCH 28.5 MCHC 33.6 RDW 17.0 H Plt Count 89 L PT INR APTT Sodium 134 Potassium 3.8 Chloride 102 Carbon Dioxide 23 Anion Gap 12 BUN 9 Creatinine 0.4 L Est GFR ( Amer) > 60 Est GFR (Non-Af Amer) > 60 Random Glucose 107 H Calcium 8.7 Phosphorus Magnesium Total Bilirubin 2.2 H AST 662 H ALT 253 H D Alkaline Phosphatase 319 H Troponin I < 0.0120 Total Protein 9.5 H Albumin 3.9 Globulin 5.6 H Albumin/Globulin Ratio 0.7 L Blood Type Blood Type Confirm Antibody Screen BBK History Checked Assessment & Plan - Assessment and Plan (Free Text) Assessment: 41yo F with PMHx cirrhosis, cholelithiasis, anxiety/depression, elevated LFTs, and EtOH abuse admitted for AMS and elevated LFTs. AMS -Psych on board, appreciate input -Neuro on board, appreciate input -MRI brain: no acute changes, chronic white matter changes -CT head: no acute pathology elevated LFTs in setting of cirrhosis -US abd: cirrhosis -GI on board, appreciate input -MRCP 06/08/15 with dilated CBD with no obstruction -MRCP -hep panel, autoimmune workup EtOH abuse -EtOH quant normalized -CIWA -Librium, ativan prn -vitamins DVT ppx -SCDs Decision To Admit - Pt Status Changed To: Hospital Disposition Of: Inpatient - Admit Certification Admit to Inpatient:: After my assessment, the patient will require hospitalization for at least two midnights. This is because of the severity of symptoms shown, intensity of services needed, and/or the medical risk in this patient being treated as an outpatient. - . Bed Request Type: Telemetry Admitting Physician: Bc Abdalla <Bc Abdalla Last Filed: 01/07/17 17:54> Results - Vital Signs Recent Vital Signs: Last Vital Signs Temp 97.9 F 01/07/17 12:51 Pulse 75 01/07/17 12:51 Resp 16 01/07/17 12:51 BP 106/68 01/07/17 12:51 Pulse Ox 99 01/07/17 12:51 - Labs Result Diagrams: 01/07/17 05:20 01/07/17 05:20 Labs: Laboratory Results - last 24 hr 01/05/17 01/07/17 01/07/17 14:00 05:20 05:20 WBC 5.7 RBC 3.17 L Hgb 9.1 L Hct 27.8 L MCV 87.7 MCH 28.7 MCHC 32.7 L RDW 17.7 H Plt Count 116 L Sodium 139 Potassium 3.7 Chloride 108 H Carbon Dioxide 23 Anion Gap 12 BUN 10 Creatinine 0.5 L Est GFR ( Amer) > 60 Est GFR (Non-Af Amer) > 60 Random Glucose 98 Calcium 8.5 Total Bilirubin 1.0 AST 369 H D ALT 192 H Alkaline Phosphatase 278 H Total Protein 8.6 H Albumin 3.5 Globulin 5.0 H Albumin/Globulin Ratio 0.7 L ALECIA Screen Positive H ALECIA Titer 1:160 H ALECIA Titer 2 TEST NOT PERFORMED ALECIA Pattern Homogeneous H ALECIA Pattern 2 TEST NOT PERFORMED Smooth Muscle Ab Titer 1:160 H Anti-Smooth Muscle Ab Positive H Assessment & Plan - Assessment and Plan (Free Text) Assessment: Patient seen and examined with residents in rounds. Case, condition, investigative work up and plan discussed in detail. Agree with residents progress note. Plan: As ordered. (Bc Abdalla MD)
[2017-01-05] MEDS ORDERED: Pneumococcal 23-Valent Vaccine IM ONE (13:00)
--- NOTE | 2017-01-05 13:33 | CP.PCM.CON ---
History of Present Illness - History of Present Illness History of Present Illness: RFC: Elevated lfts/Abdominal pain HPI: 41 year old female who presents with altered mental status. her mental status is improved today. She admits to drinking a liter of alcohol yesterday and that she drinks heavily on a regular basis. She also reports moderately severe, constant RUQ pain. She reports nausea and vomiting associated. The pain has been going on for the past few days. She has had similar pain before associated with gallstones. She has some soboe. No chest pain. She reports subjective fevers. No blood in the stool. PMhx: etoh abuse, gallstones PSHx cholecystectomy SHx etoh abuse FHx no family history of liver dz ROS acomprehensive review of systems was performed and was negative apart from HPI Past Patient History - Infectious Disease Hx of Infectious Diseases: None - Tetanus Immunizations Tetanus Immunization: Unknown - Past Medical History & Family History Past Medical History?: Yes - Past Social History Smoking Status: Unknown If Ever Smoked - CARDIAC Hx Hypertension: No - PULMONARY Hx Tuberculosis: No - NEUROLOGICAL Hx Seizures: No - HEENT Hx HEENT Problems: No - RENAL Hx Chronic Kidney Disease: No - ENDOCRINE/METABOLIC Hx Endocrine Disorders: No - HEMATOLOGICAL/ONCOLOGICAL Hx Human Immunodeficiency Virus (HIV): No - INTEGUMENTARY Hx Dermatological Problems: No - MUSCULOSKELETAL/RHEUMATOLOGICAL Hx Arthritis: Yes - GASTROINTESTINAL Hx Gall Bladder Disease: Yes - GENITOURINARY/GYNECOLOGICAL Hx Sexually Transmitted Disorders: No - PSYCHIATRIC Hx Anxiety: Yes Hx Depression: Yes - SURGICAL HISTORY Hx Cholecystectomy: Yes (11/2014) - ANESTHESIA Hx Anesthesia: Yes Hx Anesthesia Reactions: No Hx Malignant Hyperthermia: No Meds Allergies/Adverse Reactions: Allergies Allergy/AdvReac Type Severity Reaction Status Date / Time No Known Allergies Allergy Verified 06/10/15 18:30 - Medications Medications: Current Medications Chlordiazepoxide (Librium) 25 mg PO Q4H PRN PRN Reason: Withdrawl Enoxaparin Sodium (Lovenox) 40 mg SC DAILY [facility]S [facility]CLUDE 234 BEDS AT THE [facility] PRN Reason: Protocol Last Admin: 01/05/17 09:10 Dose: 40 mg Folic Acid (Folic Acid) 1 mg PO DAILY COUNTS INCLUDE 234 BEDS AT THE [facility] Last Admin: 01/05/17 09:09 Dose: 1 mg Home Med (Budesonide [Entocort Ec]) 3 mg PO TID COUNTS INCLUDE 234 BEDS AT THE [facility] Sodium Chloride (Sodium Chloride 0.9%) 1,000 mls @ 100 mls/hr IV .Q10H COUNTS INCLUDE 234 BEDS AT THE [facility] Stop: 01/05/17 16:45 Last Admin: 01/05/17 12:40 Dose: 100 mls/hr Lorazepam (Ativan) 1 mg IVP Q4 PRN PRN Reason: Symptoms of alcohol withdrawl Multivitamins/Minerals (Therapeutic-M Tab) 1 tab PO DAILY COUNTS INCLUDE 234 BEDS AT THE [facility] Last Admin: 01/05/17 09:10 Dose: 1 tab Pantoprazole Sodium (Protonix Ec Tab) 40 mg PO DAILY RIRI Last Admin: 01/05/17 09:10 Dose: 40 mg Thiamine HCl (Vitamin B1 Tab) 100 mg PO DAILY RIRI Last Admin: 01/05/17 09:10 Dose: 100 mg Physical Exam - Constitutional Appears: Non-toxic, No Acute Distress, Chronically Ill - Head Exam Head Exam: ATRAUMATIC, NORMOCEPHALIC - Eye Exam Eye Exam: Normal appearance. absent: Scleral icterus Pupil Exam: PERRL - ENT Exam ENT Exam: Mucous Membranes Moist, Normal Oropharynx - Neck Exam Neck exam: Negative for: Lymphadenopathy, Thyromegaly - Respiratory Exam Respiratory Exam: Clear to Auscultation Bilateral, NORMAL BREATHING PATTERN. absent: Rhonchi, Wheezes, Respiratory Distress - Cardiovascular Exam Cardiovascular Exam: REGULAR RHYTHM, +S1, +S2 - GI/Abdominal Exam GI & Abdominal Exam: Soft. absent: Distended, Guarding, Tenderness - Extremities Exam Extremities exam: Positive for: normal capillary refill. Negative for: pedal edema - Back Exam Back exam: absent: rash noted - Neurological Exam Neurological exam: Alert, Oriented x3 - Psychiatric Exam Psychiatric exam: Flat Affect, Normal Mood - Skin Skin Exam: Dry, Normal Color, Warm Results - Vital Signs Recent Vital Signs: Last Vital Signs Temp 98.3 F 01/05/17 12:18 Pulse 95 H 01/05/17 12:18 Resp 18 01/05/17 12:18 BP 129/85 01/05/17 12:18 Pulse Ox 99 01/05/17 12:18 - Labs Result Diagrams: 01/05/17 08:50 01/05/17 08:50 Labs: Laboratory Results - last 24 hr 01/04/17 01/04/17 01/04/17 15:30 16:45 16:45 WBC 3.9 L RBC 3.58 L Hgb 10.0 L Hct 30.6 L MCV 85.4 MCH 27.9 MCHC 32.6 L RDW 16.7 H Plt Count 98 L PT 11.9 H INR 1.14 H APTT 25.6 Sodium 135 Potassium 3.9 Chloride 99 Carbon Dioxide 26 Anion Gap 15 BUN 9 Creatinine 0.4 L Est GFR ( Amer) > 60 Est GFR (Non-Af Amer) > 60 Random Glucose 92 Calcium 9.0 Phosphorus 4.4 Magnesium 1.3 L Total Bilirubin 1.9 H AST 800 H ALT 319 H Alkaline Phosphatase 382 H Troponin I < 0.0120 Total Protein 10.3 H Albumin 4.3 Globulin 6.1 H Albumin/Globulin Ratio 0.7 L Blood Type Blood Type Confirm Antibody Screen BBK History Checked 01/04/17 01/04/17 01/05/17 16:45 17:02 00:00 WBC RBC Hgb Hct MCV MCH MCHC RDW Plt Count PT INR APTT Sodium Potassium Chloride Carbon Dioxide Anion Gap BUN Creatinine Est GFR ( Amer) Est GFR (Non-Af Amer) Random Glucose Calcium Phosphorus Magnesium Total Bilirubin AST ALT Alkaline Phosphatase Troponin I < 0.0120 Total Protein Albumin Globulin Albumin/Globulin Ratio Blood Type O POSITIVE Blood Type Confirm O POSITIVE Antibody Screen Negative BBK History Checked No verified bt 01/05/17 01/05/17 01/05/17 08:50 08:50 08:50 WBC 6.6 D RBC 3.36 L Hgb 9.6 L Hct 28.4 L MCV 84.6 MCH 28.5 MCHC 33.6 RDW 17.0 H Plt Count 89 L PT INR APTT Sodium 134 Potassium 3.8 Chloride 102 Carbon Dioxide 23 Anion Gap 12 BUN 9 Creatinine 0.4 L Est GFR ( Amer) > 60 Est GFR (Non-Af Amer) > 60 Random Glucose 107 H Calcium 8.7 Phosphorus Magnesium Total Bilirubin 2.2 H AST 662 H ALT 253 H D Alkaline Phosphatase 319 H Troponin I < 0.0120 Total Protein 9.5 H Albumin 3.9 Globulin 5.6 H Albumin/Globulin Ratio 0.7 L Blood Type Blood Type Confirm Antibody Screen BBK History Checked Assessment & Plan - Assessment and Plan (Free Text) Assessment: 41 year old female with h/o gallstones s/p cholecystectomy, etoh abuse admitted with AMS and elevated lfts with abdominal pain. 1. Elevated LFTs 2. Abdominal pain 3. Alcohol abuse Plan: -elevated lfts may be multifactorial, with h/o etoh abuse but also h/o positive autoimmune markers -will repeat autoimmune serologies -recommend MRCP since she has RUQ pain and h/o dilated CBD/gallstones -supportive care -banana bag, multivitamins, thiamine for etoh abuse -alcohol abstinence - Date & Time Date: 01/05/17 Time: 13:33
[2017-01-05 21:48] LABS: IMMUNOGLOBULIN A 446.4 mg/dL (70.0-400.0)
[2017-01-05 22:03] LABS: IMMUNOGLOBULIN G 3048.7 mg/dL (700.0-1600.0)
[2017-01-06 06:50] LABS: MEAN CELL VOLUME 86.5 fl (81.0-99.0); MEAN CORPUSCULAR HEMOGLOBIN 28.7 pg (27.0-31.0); MEAN CORPUSCULAR HGB CONC 33.2 g/dL (33.0-37.0); RED CELL DISTRIBUTION WIDTH 17.5 % (11.5-14.5); WHITE BLOOD COUNT 5.4 K/uL (4.8-10.8)
[2017-01-06 07:01] LABS: ALB/GLOB RATIO 0.7 (1.0-2.1); ALKALINE PHOSPHATASE 297 U/L (38-126); ALT/SGPT 220 U/L (9-52); AST/SGOT 521 U/L (14-36); BILIRUBIN,TOTAL 1.9 mg/dl (0.2-1.3); BLOOD UREA NITROGEN 8 mg/dl (7-17); CALCIUM 8.8 mg/dL (8.4-10.2); CARBON DIOXIDE 26 mmol/L (22-30); CHLORIDE 105 mmol/L (98-107); GFR AFRICAN-AMERICAN > 60; GLUCOSE,RANDOM 95 mg/dL (65-105); POTASSIUM 4.1 MMOL/L (3.6-5.0); SODIUM 140 mmol/l (132-148); TOTAL PROTEIN 9.5 G/DL (6.3-8.2)
--- NOTE | 2017-01-06 08:00 | PQF GENQUE ---
This form is a permanent part of the medical record 01/05/17 , Would you please clarify if there is an associated diagnosis or not to go along with the CBC results. WBC 4.0-> 5.4, H&H 9.7/29-> 9.6/28.4 , Platelets 115->89. CBC monitoring. Clarification of your documentation is requested to better reflect the severity of illness and intensity of treatment of your patient. PHYSICIAN'S RESPONSE Based on your medical judgment of the clinical indicators outlined above please clarify the following: [] Practitioner response [] If unable to determine, please check the box, sign and date. Present On Admission (POA) Indicator: [] Present at the time of admission [] Not present at the time of admission [] Clinically Undetermined In responding to this query, please exercise your independent professional judgment. The fact that a question is asked does not imply that any particular answer is desired or expected. Thank you for your clarification on this documentation. If you have any questions please call:extension [phone] or [phone] * Thank you, Veda Hogan RN [facility]
[2017-01-06] MEDS: Pantoprazole 40 mg EC Tab PO SCH (09:48)
[2017-01-06] MEDS: Multivitamin With Minerals Tab PO SCH (09:48)
[2017-01-06] MEDS: Enoxaparin 40 mg Syringe SC SCH (09:48)
--- NOTE | 2017-01-06 12:17 | MRI ---
PROCEDURE: MRI Abdomen without contrast HISTORY: COMPARISON: None available. TECHNIQUE: Multisequence, multiplanar MR images of the abdomen without gadolinium contrast enhancement. FINDINGS: LIVER: Unremarkable. GALLBLADDER: Mild extrahepatic biliary dilatation compatible with post cholecystectomy state. No evidence of choledocholithiasis.. SPLEEN: Unremarkable. ADRENALS: Unremarkable. KIDNEYS: Unremarkable. PANCREAS: Unremarkable. AORTA: No aneurysm. ASCITES: None. PERITONEUM: Unremarkable. LYMPH NODES: Unremarkable. OTHER FINDINGS: None. IMPRESSION: Mild extrahepatic biliary dilatation compatible with post cholecystectomy state. No evidence of choledocholithiasis..
[2017-01-06] MEDS ORDERED: Metoprolol 1 mg/ml Inj IVP ONE (13:46)
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
--- NOTE | 2017-01-06 15:04 | CP.PCM.PN ---
Subjective - Date & Time of Evaluation Date of Evaluation: 01/06/17 Time of Evaluation: 09:00 - Subjective Subjective: Attempted to see patient earlier today on rounds. But she was off floor for MRCP Objective - Vital Signs/Intake and Output Vital Signs (last 24 hours): Temp Pulse Resp BP Pulse Ox 98.0 F 96 H 18 130/92 H 100 01/06/17 08:19 01/06/17 08:19 01/06/17 08:19 01/06/17 08:19 01/06/17 08:19 - Medications Medications: Current Medications Chlordiazepoxide (Librium) 25 mg PO Q4H PRN PRN Reason: Withdrawl Last Admin: 01/05/17 16:11 Dose: 25 mg Clonidine HCl (Catapres) 0.1 mg PO BID [facility] Enoxaparin Sodium (Lovenox) 40 mg SC DAILY [facility] PRN Reason: Protocol Last Admin: 01/06/17 09:48 Dose: 40 mg Folic Acid (Folic Acid) 1 mg PO DAILY [facility] Last Admin: 01/06/17 09:48 Dose: 1 mg Home Med (Budesonide [Entocort Ec]) 3 mg PO TID [facility] Lorazepam (Ativan) 1 mg IVP Q4 PRN PRN Reason: Symptoms of alcohol withdrawl Last Admin: 01/06/17 11:55 Dose: 1 mg Multivitamins/Minerals (Therapeutic-M Tab) 1 tab PO DAILY [facility] Last Admin: 01/06/17 09:48 Dose: 1 tab Pantoprazole Sodium (Protonix Ec Tab) 40 mg PO DAILY [facility] Last Admin: 01/06/17 09:48 Dose: 40 mg Thiamine HCl (Vitamin B1 Tab) 100 mg PO DAILY [facility] Last Admin: 01/06/17 09:48 Dose: 100 mg - Labs Labs: 01/06/17 05:00 01/06/17 05:20 PT 11.9 SECONDS (9.6-11.2) H 01/04/17 15:30 INR 1.14 (0.92-1.08) H 01/04/17 15:30 APTT 25.6 SECONDS (23.3-32.5) 01/04/17 15:30
[2017-01-07 00:06] VITALS: O2SAT 99
[2017-01-07 06:28] LABS: HEMATOCRIT 27.8 % (34.0-47.0); MEAN CELL VOLUME 87.7 fl (81.0-99.0); MEAN CORPUSCULAR HEMOGLOBIN 28.7 pg (27.0-31.0); MEAN CORPUSCULAR HGB CONC 32.7 g/dL (33.0-37.0); RED CELL DISTRIBUTION WIDTH 17.7 % (11.5-14.5); WHITE BLOOD COUNT 5.7 K/uL (4.8-10.8)
[2017-01-07 06:39] LABS: ALB/GLOB RATIO 0.7 (1.0-2.1); ALKALINE PHOSPHATASE 278 U/L (38-126); ALT/SGPT 192 U/L (9-52); AST/SGOT 369 U/L (14-36); BLOOD UREA NITROGEN 10 mg/dl (7-17); CALCIUM 8.5 mg/dL (8.4-10.2); CARBON DIOXIDE 23 mmol/L (22-30); CHLORIDE 108 mmol/L (98-107); GFR AFRICAN-AMERICAN > 60; GLUCOSE,RANDOM 98 mg/dL (65-105); POTASSIUM 3.7 MMOL/L (3.6-5.0); SODIUM 139 mmol/l (132-148); TOTAL PROTEIN 8.6 G/DL (6.3-8.2)
--- NOTE | 2017-01-07 07:25 | CP.PCM.PN ---
<AddieLorena - Last Filed: 01/07/17 08:32> Subjective - Date & Time of Evaluation Date of Evaluation: 01/07/17 Time of Evaluation: 07:23 - Subjective Subjective: Gastroenterology Fellow/PGY4 Progress Note Patient is sad on 1:1 with nursing noting labile mood overnight. Denies abdominal pain. Tolerating diet. No bowel movement for two days. A 12-point review of systems negtive except for as above. Objective - Vital Signs/Intake and Output Vital Signs (last 24 hours): Temp Pulse Resp BP Pulse Ox 98.1 F 86 20 126/80 99 01/07/17 04:48 01/07/17 04:48 01/07/17 04:48 01/07/17 04:48 01/07/17 04:48 Intake and Output: 01/07/17 01/07/17 06:59 18:59 Intake Total 300 Balance 300 - Medications Medications: Current Medications Benzonatate (Tessalon Perles) 200 mg PO TID PRN PRN Reason: Cough Last Admin: 01/07/17 05:37 Dose: 200 mg Chlordiazepoxide (Librium) 25 mg PO Q4H PRN PRN Reason: Withdrawl Last Admin: 01/05/17 16:11 Dose: 25 mg Clonidine HCl (Catapres) 0.1 mg PO BID [facility] Last Admin: 01/06/17 17:36 Dose: Not Given Enoxaparin Sodium (Lovenox) 40 mg SC DAILY [facility] PRN Reason: Protocol Last Admin: 01/06/17 09:48 Dose: 40 mg Folic Acid (Folic Acid) 1 mg PO DAILY [facility] Last Admin: 01/06/17 09:48 Dose: 1 mg Home Med (Budesonide [Entocort Ec]) 3 mg PO TID [facility] Lorazepam (Ativan) 1 mg IVP Q4 PRN PRN Reason: Symptoms of alcohol withdrawl Last Admin: 01/06/17 11:55 Dose: 1 mg Metoprolol Succinate (Toprol Xl) 50 mg PO DAILY [facility] Multivitamins/Minerals (Therapeutic-M Tab) 1 tab PO DAILY [facility] Last Admin: 01/06/17 09:48 Dose: 1 tab Pantoprazole Sodium (Protonix Ec Tab) 40 mg PO DAILY [facility] Last Admin: 01/06/17 09:48 Dose: 40 mg Sertraline HCl (Zoloft) 25 mg PO HS [facility] Thiamine HCl (Vitamin B1 Tab) 100 mg PO DAILY [facility] Last Admin: 01/06/17 09:48 Dose: 100 mg - Labs Labs: 01/07/17 05:20 01/07/17 05:20 PT 11.9 SECONDS (9.6-11.2) H 01/04/17 15:30 INR 1.14 (0.92-1.08) H 01/04/17 15:30 APTT 25.6 SECONDS (23.3-32.5) 01/04/17 15:30 - Constitutional Appears: Non-toxic, No Acute Distress - Head Exam Head Exam: ATRAUMATIC, NORMOCEPHALIC - Eye Exam Eye Exam: EOMI, PERRL Pupil Exam: PERRL. absent: Miosis, Mydriatic - ENT Exam ENT Exam: Mucous Membranes Moist, Normal Oropharynx - Neck Exam Neck Exam: Full ROM, Normal Inspection - Respiratory Exam Respiratory Exam: Clear to Ausculation Bilateral. absent: Rales, Rhonchi, Wheezes - Cardiovascular Exam Cardiovascular Exam: RRR, +S1, +S2. absent: Gallop, Rubs - GI/Abdominal Exam GI & Abdominal Exam: Soft, Normal Bowel Sounds. absent: Distended, Firm, Guarding, Rigid, Tenderness, Organomegaly, Rebound - Extremities Exam Extremities Exam: Full ROM. absent: Pedal Edema - Neurological Exam Neurological Exam: Alert, Awake - Psychiatric Exam Psychiatric exam: Normal Affect, Normal Mood - Skin Skin Exam: Dry, Intact, Normal Color, Warm Assessment and Plan - Assessment and Plan (Free Text) Assessment: 41 year old female with history of Depression, gallstones s/p cholecystectomy 2014, Perri-en-Y gastric bypass, and Alcohl abuse presenting with altered mental status. GI consultation for elevated liver function tests. Active treatment of alcohol withdrawal. Prior MRCP 2014 and present admission showing mild extrahepatic dilatation in setting of cholecystectomy. Prior EUS 05/2015 showed normal pancreatic duct, normal pancreatic body/tail, and unable to perform ERCP in setting of Perri-en-Y gastric bypass. No prior colonoscopy. Plan: >multifactorial- alcohol abuse, history of positive ALECIA, ASMA >pending repeat autoimmune workup >Hepatitis panel negative >11/2016 necroinflammatory Grade A3, Fibrosis stage F1-2- minimal fibrosis >primary team managing alcohol withdrawal >supportive care: thiamine, folic acid, PPI, IVFs >alcohol cessation counselling provided >LFTs trending down >cleared for discharge from GI standpoint with outpatient followup of autoimmune workup >thank you for opportunity t o participate in the care of this patient <Kermit Walsh MD - Last Filed: 01/07/17 10:37> Objective - Vital Signs/Intake and Output Vital Signs (last 24 hours): Temp Pulse Resp BP Pulse Ox 98.2 F 74 16 118/80 99 01/07/17 08:12 01/07/17 09:20 01/07/17 08:12 01/07/17 09:20 01/07/17 08:12 Intake and Output: 01/07/17 01/07/17 06:59 18:59 Intake Total 300 Balance 300 - Medications Medications: Current Medications Benzonatate (Tessalon Perles) 200 mg PO TID PRN PRN Reason: Cough Last Admin: 01/07/17 05:37 Dose: 200 mg Chlordiazepoxide (Librium) 25 mg PO Q4H PRN PRN Reason: Withdrawl Last Admin: 01/05/17 16:11 Dose: 25 mg Clonidine HCl (Catapres) 0.1 mg PO BID [facility] Last Admin: 01/07/17 09:19 Dose: 0.1 mg Enoxaparin Sodium (Lovenox) 40 mg SC DAILY [facility] PRN Reason: Protocol Last Admin: 01/07/17 09:20 Dose: 40 mg Folic Acid (Folic Acid) 1 mg PO DAILY [facility] Last Admin: 01/07/17 09:20 Dose: 1 mg Home Med (Budesonide [Entocort Ec]) 3 mg PO TID [facility] Lorazepam (Ativan) 1 mg IVP Q4 PRN PRN Reason: Symptoms of alcohol withdrawl Last Admin: 01/06/17 11:55 Dose: 1 mg Metoprolol Succinate (Toprol Xl) 50 mg PO DAILY [facility] Last Admin: 01/07/17 09:20 Dose: 50 mg Multivitamins/Minerals (Therapeutic-M Tab) 1 tab PO DAILY [facility] Last Admin: 01/07/17 09:20 Dose: 1 tab Pantoprazole Sodium (Protonix Ec Tab) 40 mg PO DAILY [facility] Last Admin: 01/07/17 09:20 Dose: 40 mg Sertraline HCl (Zoloft) 25 mg PO HS [facility] Thiamine HCl (Vitamin B1 Tab) 100 mg PO DAILY [facility] Last Admin: 01/07/17 09:21 Dose: 100 mg - Labs Labs: 01/07/17 05:20 01/07/17 05:20 PT 11.9 SECONDS (9.6-11.2) H 01/04/17 15:30 INR 1.14 (0.92-1.08) H 01/04/17 15:30 APTT 25.6 SECONDS (23.3-32.5) 01/04/17 15:30 Attending/Attestation - Attestation I have personally seen and examined this patient.: Yes I have fully participated in the care of the patient.: Yes I have reviewed all pertinent clinical information, including history, physical exam and plan: Yes Notes (Text): 01/07/17 10:36 Patient seen with GI fellow on GI rounds this am. This is a 41 year old female with history of Depression, gallstones s/p cholecystectomy 2014, Perri-en-Y gastric bypass, and Alcohol abuse presenting with altered mental status. GI consultation for elevated liver function tests. Active treatment of alcohol withdrawal. Prior MRCP 2014 and present admission showing mild extrahepatic dilatation in setting of cholecystectomy. Prior EUS 05/2015 showed normal pancreatic duct, normal pancreatic body/tail, and unable to perform ERCP in setting of Perri-en-Y gastric bypass. Supportive care. Needs alcohol rehab. LFt downtrending. To follow as outpatient. Thank you for opportunity t o participate in the care of this patient
[2017-01-07 08:14] VITALS: RESP 16
--- NOTE | 2017-01-07 08:56 | CP.PCM.DIS ---
<Bettye Copeland - Last Filed: 01/07/17 12:53> Provider - Provider Date of Admission: 01/04/17 14:13 Attending physician: Bc Abdalla MD Time Spent in preparation of Discharge (in minutes): 20 Diagnosis - Discharge Diagnosis (1) Cirrhosis Status: Acute (2) Alcohol abuse with intoxication Status: Acute (3) Alcoholic psychosis with hallucinosis Status: Acute Priority: Medium (4) Abdominal pain Status: Acute (5) Elevated transaminase level Status: Acute Hospital Course - Lab Results Lab Results: Most Recent Lab Values WBC 5.7 K/uL (4.8-10.8) 01/07/17 05:20 RBC 3.17 Mil/uL (3.80-5.20) L 01/07/17 05:20 Hgb 9.1 g/dL (12.0-16.0) L 01/07/17 05:20 Hct 27.8 % (34.0-47.0) L 01/07/17 05:20 MCV 87.7 fl (81.0-99.0) 01/07/17 05:20 MCH 28.7 pg (27.0-31.0) 01/07/17 05:20 MCHC 32.7 g/dL (33.0-37.0) L 01/07/17 05:20 RDW 17.7 % (11.5-14.5) H 01/07/17 05:20 Plt Count 116 K/uL (130-400) L 01/07/17 05:20 MPV 7.9 fl (7.2-11.7) 01/03/17 22:40 Neut % (Auto) 50.2 % (50.0-75.0) 01/03/17 22:40 Lymph % (Auto) 36.5 % (20.0-40.0) 01/03/17 22:40 Meigs % (Auto) 10.1 % (0.0-10.0) H 01/03/17 22:40 Eos % (Auto) 2.3 % (0.0-4.0) 01/03/17 22:40 Baso % (Auto) 0.9 % (0.0-2.0) 01/03/17 22:40 Neut # 2.0 K/uL (1.8-7.0) 01/03/17 22:40 Lymph # 1.5 K/uL (1.0-4.3) 01/03/17 22:40 Meigs # 0.4 K/uL (0.0-0.8) 01/03/17 22:40 Eos # 0.1 K/uL (0.0-0.7) 01/03/17 22:40 Baso # 0.0 K/uL (0.0-0.2) 01/03/17 22:40 PT 11.9 SECONDS (9.6-11.2) H 01/04/17 15:30 INR 1.14 (0.92-1.08) H 01/04/17 15:30 APTT 25.6 SECONDS (23.3-32.5) 01/04/17 15:30 Sodium 139 mmol/l (132-148) 01/07/17 05:20 Potassium 3.7 MMOL/L (3.6-5.0) 01/07/17 05:20 Chloride 108 mmol/L (98-107) H 01/07/17 05:20 Carbon Dioxide 23 mmol/L (22-30) 01/07/17 05:20 Anion Gap 12 (10-20) 01/07/17 05:20 BUN 10 mg/dl (7-17) 01/07/17 05:20 Creatinine 0.5 mg/dL (0.7-1.2) L 01/07/17 05:20 Est GFR ( Amer) > 60 01/07/17 05:20 Est GFR (Non-Af Amer) > 60 01/07/17 05:20 Random Glucose 98 mg/dL (65-105) 01/07/17 05:20 Calcium 8.5 mg/dL (8.4-10.2) 01/07/17 05:20 Phosphorus 4.4 mg/dl (2.5-4.5) 01/04/17 16:45 Magnesium 1.3 MG/DL (1.6-2.3) L 01/04/17 16:45 Total Bilirubin 1.0 mg/dl (0.2-1.3) 01/07/17 05:20 AST 369 U/L (14-36) H D 01/07/17 05:20 ALT 192 U/L (9-52) H 01/07/17 05:20 Alkaline Phosphatase 278 U/L (38-126) H 01/07/17 05:20 Ammonia 21 umo/L (11-51) 01/04/17 03:31 Troponin I < 0.0120 ng/mL (0.00-0.120) 01/05/17 08:50 Total Protein 8.6 G/DL (6.3-8.2) H 01/07/17 05:20 Albumin 3.5 g/dL (3.5-5.0) 01/07/17 05:20 Globulin 5.0 gm/dL (2.2-3.9) H 01/07/17 05:20 Albumin/Globulin Ratio 0.7 (1.0-2.1) L 01/07/17 05:20 Urine Color Aria (YELLOW) 01/04/17 11:56 Urine Clarity Slighty-cloudy (Clear) 01/04/17 11:56 Urine pH 6.0 (5.0-8.0) 01/04/17 11:56 Ur Specific [place] 1.024 (1.003-1.030) 01/04/17 11:56 Urine Protein 100 mg/dL (NEGATIVE) 01/04/17 11:56 Urine Glucose (UA) Neg mg/dL (Normal) 01/04/17 11:56 Urine Ketones Trace mg/dL (NEGATIVE) 01/04/17 11:56 Urine Blood Moderate (NEGATIVE) 01/04/17 11:56 Urine Nitrate Negative (NEGATIVE) 01/04/17 11:56 Urine Bilirubin Negative (NEGATIVE) 01/04/17 11:56 Urine Urobilinogen 2.0 mg/dL (0.2-1.0) H 01/04/17 11:56 Ur Leukocyte Esterase Neg Jonnathan/uL (Negative) 01/04/17 11:56 Urine RBC (Auto) 31 /hpf (0-3) H 01/04/17 11:56 Urine Microscopic WBC 3 /hpf (0-5) 01/04/17 11:56 Ur Squamous Epith Cells 10 /hpf (0-5) H 01/04/17 11:56 Urine Bacteria Rare (<OCC) 01/04/17 11:56 Hyaline Casts 0-2 /hpf (0-2) 01/04/17 11:56 Urine Opiates Screen Negative (NEGATIVE) 01/03/17 03:31 Urine Methadone Screen Negative (NEGATIVE) 01/03/17 03:31 Ur Barbiturates Screen Negative (NEGATIVE) 01/03/17 03:31 Ur Phencyclidine Scrn Negative (NEGATIVE) 01/03/17 03:31 Ur Amphetamines Screen Negative (NEGATIVE) 01/03/17 03:31 U Benzodiazepines Scrn Negative (NEGATIVE) 01/03/17 03:31 U Oth Cocaine Metabols Negative (NEGATIVE) 01/03/17 03:31 U Cannabinoids Screen Negative (NEGATIVE) 01/03/17 03:31 Alcohol, Quantitative < 10 mg/dl (0-10) 01/04/17 10:45 IgG 3048.7 mg/dL (700.0-1600.0) H 01/05/17 14:00 IgA 446.4 mg/dL (70.0-400.0) H 01/05/17 14:00 IgM 185.0 mg/dL (40.0-230.0) 01/05/17 14:00 ALECIA Screen Positive (Negative) H 01/05/17 14:00 ALECIA Titer 1:160 Titer (<1:40) H 01/05/17 14:00 ALECIA Titer 2 TEST NOT PERFORMED 01/05/17 14:00 ALECIA Pattern Homogeneous H 01/05/17 14:00 ALECIA Pattern 2 TEST NOT PERFORMED 01/05/17 14:00 Anti-Mitochondrial Ab Negative (Negative) 01/05/17 14:00 Hepatitis A IgM Ab Negative (NEGATIVE) 01/05/17 10:26 Hep Bs Antigen Negative (NEGATIVE) 01/05/17 10:26 Hep B Core IgM Ab Negative (NEGATIVE) 01/05/17 10:26 Hepatitis C Antibody Negative (NEGATIVE) 01/05/17 10:26 Blood Type O POSITIVE 01/04/17 16:45 Blood Type Confirm O POSITIVE 01/04/17 17:02 Antibody Screen Negative 01/04/17 16:45 BBK History Checked No verified bt 01/04/17 16:45 - Hospital Course Hospital Course: 41yo F with PMHx cholelithisis, anxiety/depression, elevated LFTs, and EtOH abuse admitted for AMS and elevated LFTs. Pt had crisis eval in the ED and psych Dr. Romero c/s with recommendation for no inpatient psych admission and pt started on zoloft to be continued at d/c. Protocol followed for EtOH withdrawal as pt reported recent alcohol abuse. Neuro Dr. Brewster c/s and pt returned to baseline mentation with recommendation for medical management. US abd showed cirrhosis. GI Dr. Fraire c/s with recommendation for MRCP showing no obstruction and cirrhosis workup including autoAb which were pending at time of d/c and to be FU with GI. Pt LFTs downtrending at time of d/c. Pancytopenia likely d/t EtOH abuse and cirrhosis. Social work services set up at time of d/c to address home situation. Discharge Exam - Head Exam Head Exam: ATRAUMATIC, NORMOCEPHALIC - Eye Exam Eye Exam: Normal appearance - ENT Exam ENT Exam: Mucous Membranes Moist - Neck Exam Neck exam: Normal Inspection - Respiratory Exam Respiratory Exam: NORMAL BREATHING PATTERN - Cardiovascular Exam Cardiovascular Exam: REGULAR RHYTHM - GI/Abdominal Exam GI & Abdominal Exam: Soft - Extremities Exam Extremities exam: normal inspection - Back Exam Back exam: NORMAL INSPECTION - Neurological Exam Neurological exam: Alert, Oriented x3 - Skin Skin Exam: Dry, Warm Discharge Plan - Discharge Medications Prescriptions: Benzonatate [Tessalon Perles] 200 mg PO TID PRN #30 sgl PRN Reason: Cough cloNIDine [Catapres] 0.1 mg PO BID #360 tab Folic Acid 1 mg PO DAILY #30 tab Metoprolol Succinate [Toprol XL] 50 mg PO DAILY #30 tab Multimineral/Multivitamin [Therapeutic-M Tab] 1 tab PO DAILY #30 tab Pantoprazole [Protonix EC Tab] 40 mg PO DAILY #30 ect Sertraline [Zoloft] 25 mg PO HS #30 tab Thiamine [Vitamin B1 Tab] 100 mg PO DAILY #30 tab - Follow Up Plan Condition: STABLE Disposition: HOME/ ROUTINE Instructions: Alcohol Dependence (ED) Additional Instructions: patient cleared for discharge to Home today by , and pt. off 1:1, aaox3 calm, cooperative Rx for all meds sent to [facility] [address] pt. states she follows up with outpatient, psych / etoh f/u Referrals: Bc Abdalla MD [Staff Provider] - Elliott Kapoor MD, PhD [Staff Provider] - <Bc Abdalla - Last Filed: 01/07/17 18:06> Provider - Provider Date of Admission: 01/04/17 14:13 Attending physician: Bc Abdalla MD Hospital Course - Lab Results Lab Results: Most Recent Lab Values WBC 5.7 K/uL (4.8-10.8) 01/07/17 05:20 RBC 3.17 Mil/uL (3.80-5.20) L 01/07/17 05:20 Hgb 9.1 g/dL (12.0-16.0) L 01/07/17 05:20 Hct 27.8 % (34.0-47.0) L 01/07/17 05:20 MCV 87.7 fl (81.0-99.0) 01/07/17 05:20 MCH 28.7 pg (27.0-31.0) 01/07/17 05:20 MCHC 32.7 g/dL (33.0-37.0) L 01/07/17 05:20 RDW 17.7 % (11.5-14.5) H 01/07/17 05:20 Plt Count 116 K/uL (130-400) L 01/07/17 05:20 MPV 7.9 fl (7.2-11.7) 01/03/17 22:40 Neut % (Auto) 50.2 % (50.0-75.0) 01/03/17 22:40 Lymph % (Auto) 36.5 % (20.0-40.0) 01/03/17 22:40 Meigs % (Auto) 10.1 % (0.0-10.0) H 01/03/17 22:40 Eos % (Auto) 2.3 % (0.0-4.0) 01/03/17 22:40 Baso % (Auto) 0.9 % (0.0-2.0) 01/03/17 22:40 Neut # 2.0 K/uL (1.8-7.0) 01/03/17 22:40 Lymph # 1.5 K/uL (1.0-4.3) 01/03/17 22:40 Meigs # 0.4 K/uL (0.0-0.8) 01/03/17 22:40 Eos # 0.1 K/uL (0.0-0.7) 01/03/17 22:40 Baso # 0.0 K/uL (0.0-0.2) 01/03/17 22:40 PT 11.9 SECONDS (9.6-11.2) H 01/04/17 15:30 INR 1.14 (0.92-1.08) H 01/04/17 15:30 APTT 25.6 SECONDS (23.3-32.5) 01/04/17 15:30 Sodium 139 mmol/l (132-148) 01/07/17 05:20 Potassium 3.7 MMOL/L (3.6-5.0) 01/07/17 05:20 Chloride 108 mmol/L (98-107) H 01/07/17 05:20 Carbon Dioxide 23 mmol/L (22-30) 01/07/17 05:20 Anion Gap 12 (10-20) 01/07/17 05:20 BUN 10 mg/dl (7-17) 01/07/17 05:20 Creatinine 0.5 mg/dL (0.7-1.2) L 01/07/17 05:20 Est GFR ( Amer) > 60 01/07/17 05:20 Est GFR (Non-Af Amer) > 60 01/07/17 05:20 Random Glucose 98 mg/dL (65-105) 01/07/17 05:20 Calcium 8.5 mg/dL (8.4-10.2) 01/07/17 05:20 Phosphorus 4.4 mg/dl (2.5-4.5) 01/04/17 16:45 Magnesium 1.3 MG/DL (1.6-2.3) L 01/04/17 16:45 Total Bilirubin 1.0 mg/dl (0.2-1.3) 01/07/17 05:20 AST 369 U/L (14-36) H D 01/07/17 05:20 ALT 192 U/L (9-52) H 01/07/17 05:20 Alkaline Phosphatase 278 U/L (38-126) H 01/07/17 05:20 Ammonia 21 umo/L (11-51) 01/04/17 03:31 Troponin I < 0.0120 ng/mL (0.00-0.120) 01/05/17 08:50 Total Protein 8.6 G/DL (6.3-8.2) H 01/07/17 05:20 Albumin 3.5 g/dL (3.5-5.0) 01/07/17 05:20 Globulin 5.0 gm/dL (2.2-3.9) H 01/07/17 05:20 Albumin/Globulin Ratio 0.7 (1.0-2.1) L 01/07/17 05:20 Urine Color Aria (YELLOW) 01/04/17 11:56 Urine Clarity Slighty-cloudy (Clear) 01/04/17 11:56 Urine pH 6.0 (5.0-8.0) 01/04/17 11:56 Ur Specific [place] 1.024 (1.003-1.030) 01/04/17 11:56 Urine Protein 100 mg/dL (NEGATIVE) 01/04/17 11:56 Urine Glucose (UA) Neg mg/dL (Normal) 01/04/17 11:56 Urine Ketones Trace mg/dL (NEGATIVE) 01/04/17 11:56 Urine Blood Moderate (NEGATIVE) 01/04/17 11:56 Urine Nitrate Negative (NEGATIVE) 01/04/17 11:56 Urine Bilirubin Negative (NEGATIVE) 01/04/17 11:56 Urine Urobilinogen 2.0 mg/dL (0.2-1.0) H 01/04/17 11:56 Ur Leukocyte Esterase Neg Jonnathan/uL (Negative) 01/04/17 11:56 Urine RBC (Auto) 31 /hpf (0-3) H 01/04/17 11:56 Urine Microscopic WBC 3 /hpf (0-5) 01/04/17 11:56 Ur Squamous Epith Cells 10 /hpf (0-5) H 01/04/17 11:56 Urine Bacteria Rare (<OCC) 01/04/17 11:56 Hyaline Casts 0-2 /hpf (0-2) 01/04/17 11:56 Urine Opiates Screen Negative (NEGATIVE) 01/03/17 03:31 Urine Methadone Screen Negative (NEGATIVE) 01/03/17 03:31 Ur Barbiturates Screen Negative (NEGATIVE) 01/03/17 03:31 Ur Phencyclidine Scrn Negative (NEGATIVE) 01/03/17 03:31 Ur Amphetamines Screen Negative (NEGATIVE) 01/03/17 03:31 U Benzodiazepines Scrn Negative (NEGATIVE) 01/03/17 03:31 U Oth Cocaine Metabols Negative (NEGATIVE) 01/03/17 03:31 U Cannabinoids Screen Negative (NEGATIVE) 01/03/17 03:31 Alcohol, Quantitative < 10 mg/dl (0-10) 01/04/17 10:45 IgG 3048.7 mg/dL (700.0-1600.0) H 01/05/17 14:00 IgA 446.4 mg/dL (70.0-400.0) H 01/05/17 14:00 IgM 185.0 mg/dL (40.0-230.0) 01/05/17 14:00 ALECIA Screen Positive (Negative) H 01/05/17 14:00 ALECIA Titer 1:160 Titer (<1:40) H 01/05/17 14:00 ALECIA Titer 2 TEST NOT PERFORMED 01/05/17 14:00 ALECIA Pattern Homogeneous H 01/05/17 14:00 ALECIA Pattern 2 TEST NOT PERFORMED 01/05/17 14:00 Anti-Mitochondrial Ab Negative (Negative) 01/05/17 14:00 Smooth Muscle Ab Titer 1:160 Titer (< 1:20) H 01/05/17 14:00 Anti-Smooth Muscle Ab Positive (Negative) H 01/05/17 14:00 Hepatitis A IgM Ab Negative (NEGATIVE) 01/05/17 10:26 Hep Bs Antigen Negative (NEGATIVE) 01/05/17 10:26 Hep B Core IgM Ab Negative (NEGATIVE) 01/05/17 10:26 Hepatitis C Antibody Negative (NEGATIVE) 01/05/17 10:26 Blood Type O POSITIVE 01/04/17 16:45 Blood Type Confirm O POSITIVE 01/04/17 17:02 Antibody Screen Negative 01/04/17 16:45 BBK History Checked No verified bt 01/04/17 16:45
[2017-01-07] MEDS ORDERED: Metoprolol Succinate 50 mg XL Tab PO SCH (09:00)
[2017-01-07] MEDS: Enoxaparin 40 mg Syringe SC SCH (09:20)
[2017-01-07] MEDS: Pantoprazole 40 mg EC Tab PO SCH (09:20)
[2017-01-07] MEDS: Multivitamin With Minerals Tab PO SCH (09:20)
[2017-01-07 12:52] VITALS: BP 106/68; PULSE 75; TEMP 97.9
--- NOTE | 2017-01-07 19:06 | CARD ---
APPROVED REPORT EKG Measurement Heart [id number] <Conclusion> Normal sinus rhythm Voltage criteria for left ventricular hypertrophy Anteroseptal infarct, age undetermined Abnormal ECG
--- NOTE | 2017-01-07 19:11 | CARD ---
APPROVED REPORT EKG Measurement Heart [id number] <Conclusion> Normal sinus rhythm Septal infarct, age undetermined Abnormal ECG
[2017-01-08 18:21] LABS: LKM-1 Ab (IgG) <=20.0 U (<=20.0)
== END 2017-01-07 14:00 | disposition home or self-care (01) | DRG 750 ==
LOC: H.ER 22:10 → H.EROBSV 01-04 00:24 → OBSVTOIN 01-04 14:13 → H.ERHOLD 01-04 14:13 → H.TEL 01-04 16:12
PROVIDERS: ADMIT Internal Medicine; ATTEND Internal Medicine
DX: F10.251 Alcohol dependence with alcohol-induced psychotic disorder with hallucinations (principal); K70.30 Alcoholic cirrhosis of liver without ascites; F10.239 Alcohol dependence with withdrawal, unspecified; F32.9 Major depressive disorder, single episode, unspecified; F41.9 Anxiety disorder, unspecified; K80.20 Calculus of gallbladder without cholecystitis without obstruction; Y90.8 Blood alcohol level of 240 mg/100 ml or more; R45.86 Emotional lability

== ENCOUNTER 2018-05-21 14:21 | Emergency (ER) | payer MEDICAID ==
[2018-05-21 14:22] VITALS: BMI 27.4
--- NOTE | 2018-05-21 15:44 | ED PDOC ---
HPI: Psych/Substance Abuse Time Seen by Provider: 05/21/18 14:52 Chief Complaint (Nursing): Alcohol Ingestion History Per: Patient (43 Y/O FEMALE NOTED WITH APPARENT INTOXICATION AND UNSTEADY GAIT. PATIENT ADMITS TO ALCOHOL INTAKE. DENIES ANY COMPLAINTS.) Past Medical History Reviewed: Historical Data, Nursing Documentation, Vital Signs Vital Signs: Last Vital Signs Temp 98.3 F 05/21/18 14:23 Pulse 102 H 05/21/18 14:23 Resp 18 05/21/18 14:23 BP 133/68 05/21/18 14:23 Pulse Ox 98 05/21/18 14:23 - Medical History PMH: Anxiety, Arthritis, Depression, Gall Bladder Disease Denies: Diabetes, Hepatitis, HIV, HTN, Chronic Kidney Disease, Seizures, Sexually Transmitted Disease - Surgical History Surgical History: Cholecystectomy (11/2014) - Family History Family History: States: Unknown Family Hx - Immunization History Hx Tetanus Toxoid Vaccination: No (unknown) Hx Influenza Vaccination: No (unknown) Hx Pneumococcal Vaccination: No (unknown) - Home Medications Home Medications: Ambulatory Orders Medication Instructions Recorded Budesonide [Entocort EC] 3 mg PO TID 01/04/17 Benzonatate [Tessalon Perles] 200 mg PO TID PRN #30 sgl 01/07/17 Folic Acid 1 mg PO DAILY #30 tab 01/07/17 Metoprolol Succinate XL [Toprol XL] 50 mg PO DAILY #30 tab 01/07/17 Multimineral/Multivitamin 1 tab PO DAILY #30 tab 01/07/17 [Therapeutic-M Tab] Pantoprazole [Protonix EC Tab] 40 mg PO DAILY #30 ect 01/07/17 Sertraline [Zoloft] 25 mg PO HS #30 tab 01/07/17 Thiamine [Vitamin B1 Tab] 100 mg PO DAILY #30 tab 01/07/17 cloNIDine [Catapres] 0.1 mg PO BID #360 tab 01/07/17 - Allergies Allergies/Adverse Reactions: Allergies Allergy/AdvReac Type Severity Reaction Status Date / Time No Known Allergies Allergy Verified 05/21/18 14:23 Review of Systems ROS Statement: Except As Marked, All Systems Reviewed And Found Negative Physical Exam - Reviewed Nursing Documentation Reviewed: Yes Vital Signs Reviewed: Yes - Physical Exam Appears: Positive for: Well, Non-toxic, No Acute Distress Head Exam: Positive for: ATRAUMATIC, NORMAL INSPECTION, NORMOCEPHALIC Skin: Positive for: Normal Color, Warm, DRY Eye Exam: Positive for: EOMI, Normal appearance, PERRL ENT: Positive for: Normal ENT Inspection Neck: Positive for: Normal, Painless ROM Cardiovascular/Chest: Positive for: Regular Rate, Rhythm Respiratory: Positive for: CNT, Normal Breath Sounds Gastrointestinal/Abdominal: Positive for: Normal Exam, Soft Back: Positive for: Normal Inspection Extremity: Positive for: Normal ROM Neurologic/Psych: Positive for: Alert, Oriented - ECG O2 Sat by Pulse Oximetry: 98 - Progress ED Course And Treament: Patient noted to repeatedly attempt to get out of bed despite unsteady gait. 16:30pm Ativan 2 mg IM x 1 dose PATIENT RE-EXAMINED 20:40PM. NOTED IMPROVED WITH STEADY GAIT. Disposition - Clinical Impression Clinical Impression: Alcohol ingestion - Patient ED Disposition Is Patient to be Admitted: No - Disposition Disposition: Routine/Home Disposition Time: 20:38 Condition: FAIR Instructions: Alcohol Use - When Is Drinking a Problem?, Alcohol Poisoning (DC) Print Language: [place]
[2018-05-21 21:13] VITALS: BP 131/88; PULSE 108; RESP 16; TEMP 97.9; O2SAT 100
== END 2018-05-21 21:19 | disposition home or self-care (01) ==
LOC: H.ER 14:21
DX: F10.10 Alcohol abuse, uncomplicated (principal); Z86.59 Personal history of other mental and behavioral disorders
CPT/HCPCS: 82948; 96372; 99281; J2060